=== PATIENT | male | born 1965 | race Two or more races ===

== ENCOUNTER 2021-03-26 16:53 | Emergency (ER) | payer OTHER ==
[~2021-03-26] VITALS: Ht 160 cm; Wt 78.9 kg
--- NOTE | 2021-03-26 16:55 | NUR ---
TO ER BED 4, LACERATION TO LEFT HAND WITH CIRCULAR SAW WHILE WORKING, NO ACTIVE BLEEDING, AAOX4, BREATHING EVEN AND UNLABORED
[2021-03-26] MEDS ORDERED: LIDOCAINE HCL/MPF 1% 30 ML VIAL IJ ONE (17:18)
--- NOTE | 2021-03-26 17:41 | NUR ---
FAMILY AT BEDSIDE
[2021-03-26] MEDS ORDERED: TDAP [DIPH/PERTUSSIS/TET] 0.5 ML VIAL IM ONE ×2 (18:00)
--- NOTE | 2021-03-26 18:00 | NUR ---
AT BEDSIDE FOR WOUND SUTURE
[2021-03-26] MEDS ORDERED: CEPH500C2 PO (18:43)
--- NOTE | 2021-03-26 18:55 | NUR ---
PT PROVIDED W/ WOUND CARE. DISCHARGE HOME W/ PRESCRIPTION IN STABLE CONDITION.
[2021-03-26 18:56] VITALS: BP 135/84
== END 2021-03-26 18:56 | disposition home or self-care (01) ==
LOC: ER 17:03
DX: S61.412A Laceration without foreign body of left hand, initial encounter (principal); W26.8XXA Contact with other sharp object(s), not elsewhere classified, initial encounter; Y93.89 Activity, other specified; Y92.89 Other specified places as the place of occurrence of the external cause; Y99.8 Other external cause status
CPT/HCPCS: 12004; 90471; 90715; 99283; J3490